=== PATIENT | female | born 1990 | race Caucasian/White ===

== ENCOUNTER 2018-10-26 09:08 | Emergency (ER) | payer MEDICAID ==
[~2018-10-26] VITALS: Ht 165.1 cm; Wt 138.6 kg
[2018-10-26] MEDS ORDERED: BIRTH CONTROL (09:20)
[2018-10-26] MEDS ORDERED: TYLENOL 325MG325 MG PO (09:21)
[2018-10-26 10:58] LABS: URINE APPEARANCE CLOUDY; URINE COLOR YELLOW; URINE GLUCOSE NEGATIVE (NEGATIVE); URINE KETONE NEGATIVE (NEGATIVE); URINE PROTEIN(semi-quant) TRACE mg/dL (NEGATIVE)
[2018-10-26] MEDS ORDERED: CYCLOBENZAPRINE10 M1 PO (10:58)
[2018-10-26] MEDS ORDERED: PREDNISONE20 MG PO (10:58)
[2018-10-26 10:59] LABS: URINE BILIRUBIN NEGATIVE (NEGATIVE); URINE BLOOD NEGATIVE (NEGATIVE); URINE LEUKOCYTE ESTERASE NEGATIVE (NEGATIVE); URINE MUCUS PRESENT (NOT PRESENT); URINE NITRATE NEGATIVE (NEGATIVE); URINE UROBILINOGEN NORMAL (NORMAL)
[2018-10-26 11:03] VITALS: BP 126/70
== END 2018-10-26 11:08 | disposition home or self-care (01) ==
LOC: ED 09:08
PROVIDERS: Physician Assistant
DX: M54.16 Radiculopathy, lumbar region (principal); F32.9 Major depressive disorder, single episode, unspecified; F17.210 Nicotine dependence, cigarettes, uncomplicated; Z90.49 Acquired absence of other specified parts of digestive tract
CPT/HCPCS: J1885